=== PATIENT | female | born 2000 | race Two or more races ===

== ENCOUNTER 2024-01-23 08:19 | Inpatient (IN) | payer OTHER ==
[~2024-01-23] VITALS: Ht 163.8 cm; Wt 64.0 kg
[2024-01-23 09:24] LABS: Basophils # (auto) 0 10 ^3/uL (0-0.2); Basophils % (auto) 0.3 % (0.0-2.0); Eosinophils # (auto) 0 10 ^3/uL (0-0.8); Eosinophils % (auto) 0.2 % (0.0-7.0); Hematocrit 32.9 % (36.0-46.0); Hemoglobin 10.9 g/dL (12.2-16.2); Lymphocytes # (auto) 1.8 10 ^3/uL (0.4-5.4); Lymphocytes % (auto) 13.9 % (10.0-50.0); Mean Corpuscular Hemoglobin 28.4 pg (28.0-32.0); Mean Corpuscular Hgb Conc. 33.1 g/dL (32.0-36.0); Mean Corpuscular Volume 85.8 fL (80.0-100.0); Monocytes # (auto) 0.5 10 ^3/uL (0-1.3); Monocytes % (auto) 4.3 % (0.0-12.0); Neutrophils # (auto) 10.3 10 ^3/uL (1.6-8.6); Neutrophils % (auto) 81.3 % (37.0-80.0); Nucleated Red Blood Cells % 0.1 %; Red Blood Cells 3.83 10^6/uL (4.0-5.20); Red Cell Distribution Width 19.8 % (11.8-14.3); White Blood Cell 12.6 10^3/uL (4.4-10.8)
[2024-01-23 09:44] LABS: Alanine Aminotransferase 102 U/L (7-40); Albumin 3.8 g/dL (3.2-4.8); Alkaline Phosphatase 295 U/L (46-116); Anion Gap 8 (5-15); Aspartate Aminotransferase 33 U/L (13-40); BUN/Creatinine Ratio 21.7 (10.0-20.0); Bilirubin, Total 0.7 mg/dL (0.2-1.0); Blood Urea Nitrogen 10 mg/dL (9-23); Calcium 8.7 mg/dL (8.7-10.4); Carbon Dioxide 25 mmol/L (20-30); Chloride 106 mmol/L (98-107); Glucose 95 mg/dL (74-106); Potassium 3.2 mmol/L (3.5-5.1); Sodium 139 mmol/L (136-145); Total Protein 6.5 g/dL (5.7-8.2)
[2024-01-23] MEDS: IOHEXOL 300 MG/ML 100ML BOTTLE IJ ONE (09:55)
[2024-01-23] MEDS: CLINDAMYCIN 900MG IV 50 ML IV ONE (10:23)
[2024-01-23] MEDS ORDERED: AMPI500C9 PO (10:54)
[2024-01-23] MEDS: SODIUM CHLORIDE 0.9% 1,000 ML IV SCH (12:35)
[2024-01-23] MEDS: POTASSIUM EFFERVESENT TAB 25 MEQ PO ONE (12:35)
[2024-01-23] MEDS: HYDROcodone-ACET 5/325MG TAB PO PRN (12:45)
[2024-01-23] MEDS: CLINDAMYCIN 900MG IV 50 ML IV SCH (15:10)
[2024-01-23] MEDS: KETOROLAC TROMETH 30 MG/ML 1ML VIAL IV PRN (17:10)
[2024-01-23 21:21] VITALS: PULSE 63; RESP 19; O2SAT 99
[2024-01-23] MEDS: ASCORBIC ACID 500 MG TAB PO SCH (21:34)
[2024-01-23 23:14] VITALS: BP 99/63; PULSE 58; RESP 18; TEMP 98.3; O2SAT 95
[2024-01-23 23:15] VITALS: BP 99/63; PULSE 58; RESP 18; TEMP 98.3; O2SAT 95
[2024-01-24 05:00] VITALS: BP 97/62; PULSE 53; RESP 18; TEMP 98; O2SAT 94
[2024-01-24 06:01] LABS: Basophils # (auto) 0 10 ^3/uL (0-0.2); Basophils % (auto) 0.5 % (0.0-2.0); Eosinophils # (auto) 0.1 10 ^3/uL (0-0.8); Eosinophils % (auto) 1.5 % (0.0-7.0); Hematocrit 29.5 % (36.0-46.0); Lymphocytes # (auto) 2.1 10 ^3/uL (0.4-5.4); Lymphocytes % (auto) 28.7 % (10.0-50.0); Mean Corpuscular Hemoglobin 29.2 pg (28.0-32.0); Mean Corpuscular Hgb Conc. 33.7 g/dL (32.0-36.0); Mean Corpuscular Volume 86.5 fL (80.0-100.0); Monocytes # (auto) 0.6 10 ^3/uL (0-1.3); Monocytes % (auto) 7.6 % (0.0-12.0); Neutrophils # (auto) 4.5 10 ^3/uL (1.6-8.6); Neutrophils % (auto) 61.7 % (37.0-80.0); Red Blood Cells 3.41 10^6/uL (4.0-5.20); Red Cell Distribution Width 19.1 % (11.8-14.3); White Blood Cell 7.2 10^3/uL (4.4-10.8)
[2024-01-24 06:15] LABS: Alanine Aminotransferase 64 U/L (7-40); Albumin 3.1 g/dL (3.2-4.8); Alkaline Phosphatase 248 U/L (46-116); Anion Gap 7 (5-15); Aspartate Aminotransferase 27 U/L (13-40); BUN/Creatinine Ratio 22.2 (10.0-20.0); Bilirubin, Total 0.4 mg/dL (0.2-1.0); Blood Urea Nitrogen 10 mg/dL (9-23); Calcium 8.3 mg/dL (8.7-10.4); Carbon Dioxide 25 mmol/L (20-30); Chloride 109 mmol/L (98-107); Glucose 96 mg/dL (74-106); Potassium 3.7 mmol/L (3.5-5.1); Sodium 141 mmol/L (136-145)
[2024-01-24 06:16] LABS: Total Protein 5.3 g/dL (5.7-8.2)
[2024-01-24 09:00] VITALS: BP 103/70; PULSE 60; RESP 18; TEMP 98.2; O2SAT 97
[2024-01-24] MEDS: MULTIPLE VITAMIN TAB PO SCH (11:38)
[2024-01-24] MEDS: ZINC SULFATE 220mg CAP or TAB PO SCH (11:39)
[2024-01-24 12:38] VITALS: BP 99/61; PULSE 52; RESP 18; TEMP 98.1; O2SAT 96
[2024-01-24 16:36] LABS: INR 1.08 (0.9-1.15); Partial Thromboplastin Time 26.5 SEC (24.5-34.5); Prothrombin Time 11.4 sec (9.3-11.8)
[2024-01-24 17:00] VITALS: BP 103/64; PULSE 56; RESP 19; TEMP 97.9; O2SAT 97
[2024-01-24 21:00] VITALS: BP 103/71; PULSE 53; RESP 19; TEMP 99.2; O2SAT 98
[2024-01-25 01:00] VITALS: BP 96/57; PULSE 52; RESP 18; TEMP 98.8; O2SAT 95
[2024-01-25 05:00] VITALS: BP 109/72; PULSE 55; RESP 18; O2SAT 97
[2024-01-25 05:59] LABS: Basophils # (auto) 0 10 ^3/uL (0-0.2); Basophils % (auto) 0.6 % (0.0-2.0); Eosinophils # (auto) 0.1 10 ^3/uL (0-0.8); Hematocrit 31.2 % (36.0-46.0); Hemoglobin 10.3 g/dL (12.2-16.2); Lymphocytes % (auto) 30.7 % (10.0-50.0); Mean Corpuscular Hemoglobin 28.6 pg (28.0-32.0); Mean Corpuscular Hgb Conc. 33.1 g/dL (32.0-36.0); Mean Corpuscular Volume 86.7 fL (80.0-100.0); Monocytes # (auto) 0.5 10 ^3/uL (0-1.3); Monocytes % (auto) 7.7 % (0.0-12.0); Neutrophils # (auto) 3.9 10 ^3/uL (1.6-8.6); Nucleated Red Blood Cells % 0.2 %; Red Cell Distribution Width 19.6 % (11.8-14.3); White Blood Cell 6.5 10^3/uL (4.4-10.8)
[2024-01-25 06:17] LABS: Alanine Aminotransferase 64 U/L (7-40); Albumin 3.2 g/dL (3.2-4.8); Alkaline Phosphatase 288 U/L (46-116); Anion Gap 7 (5-15); Aspartate Aminotransferase 40 U/L (13-40); Calcium 8.6 mg/dL (8.7-10.4); Carbon Dioxide 27 mmol/L (20-30); Chloride 107 mmol/L (98-107); Glucose 90 mg/dL (74-106); Potassium 3.5 mmol/L (3.5-5.1); Sodium 141 mmol/L (136-145)
[2024-01-25 06:18] LABS: Bilirubin, Total 0.4 mg/dL (0.2-1.0); Total Protein 5.8 g/dL (5.7-8.2)
[2024-01-25 06:21] LABS: BUN/Creatinine Ratio 9.6 (10.0-20.0); Blood Urea Nitrogen < 5 mg/dL (9-23)
[2024-01-25 08:55] VITALS: BP 114/60; PULSE 54; RESP 16; TEMP 97.9; O2SAT 96
[2024-01-25] MEDS: ceFAZolin 2 GM/D5W50ml 50 ML IV ONE (10:06)
[2024-01-25] MEDS ORDERED: fentaNYL CITRATE 100 MCG/2 ML VL ONE (11:56)
[2024-01-25] MEDS ORDERED: MIDAZOLAM HCL 2MG/2ML 2ml VIAL (1mg/ml) ONE (11:57)
[2024-01-25] MEDS ORDERED: ONDANSETRON HCL 4 MG/2 ML VIAL ONE (11:59)
[2024-01-25] MEDS ORDERED: LIDOCAINE 2% (LOCAL ANESTH.) PF 5ml SDV ONE (11:59)
[2024-01-25] MEDS ORDERED: PROPOFOL 10 MG/ML 20 ML IV ONE (11:59)
[2024-01-25] MEDS: ceFAZolin 1GM VL ONE (12:12)
[2024-01-25 12:36] VITALS: RESP 13; O2SAT 100
[2024-01-25 17:00] VITALS: BP 93/57; PULSE 58; RESP 16; TEMP 98.6; O2SAT 98
[2024-01-25 21:00] VITALS: BP 90/57; PULSE 61; RESP 20; TEMP 97.9; O2SAT 97
[2024-01-26] VITALS (7 sets, daily range): BP systolic 88–113; BP diastolic 48–65; PULSE 47–67; RESP 12–20; TEMP 97.4–98; O2SAT 94–100
[2024-01-26 05:07] LABS: Basophils # (auto) 0 10 ^3/uL (0-0.2); Basophils % (auto) 0.7 % (0.0-2.0); Eosinophils # (auto) 0.1 10 ^3/uL (0-0.8); Eosinophils % (auto) 1.3 % (0.0-7.0); Hematocrit 28.3 % (36.0-46.0); Hemoglobin 9.4 g/dL (12.2-16.2); Lymphocytes # (auto) 1.7 10 ^3/uL (0.4-5.4); Lymphocytes % (auto) 28.8 % (10.0-50.0); Mean Corpuscular Hemoglobin 28.9 pg (28.0-32.0); Mean Corpuscular Hgb Conc. 33.3 g/dL (32.0-36.0); Mean Corpuscular Volume 86.7 fL (80.0-100.0); Monocytes # (auto) 0.4 10 ^3/uL (0-1.3); Monocytes % (auto) 6.6 % (0.0-12.0); Neutrophils # (auto) 3.8 10 ^3/uL (1.6-8.6); Neutrophils % (auto) 62.6 % (37.0-80.0); Nucleated Red Blood Cells % 0.1 %; Red Blood Cells 3.26 10^6/uL (4.0-5.20); Red Cell Distribution Width 19.5 % (11.8-14.3); White Blood Cell 6.1 10^3/uL (4.4-10.8)
[2024-01-26 05:16] LABS: Alanine Aminotransferase 51 U/L (7-40); Albumin 2.9 g/dL (3.2-4.8); Alkaline Phosphatase 254 U/L (46-116); Anion Gap 8 (5-15); Aspartate Aminotransferase 35 U/L (13-40); BUN/Creatinine Ratio 10.3 (10.0-20.0); Blood Urea Nitrogen 6 mg/dL (9-23); Carbon Dioxide 28 mmol/L (20-30); Chloride 107 mmol/L (98-107); Glucose 102 mg/dL (74-106); Potassium 3.4 mmol/L (3.5-5.1); Sodium 143 mmol/L (136-145)
[2024-01-26 05:17] LABS: Bilirubin, Total 0.3 mg/dL (0.2-1.0); Total Protein 5.4 g/dL (5.7-8.2)
[2024-01-26] MEDS: SODIUM CHLORIDE 0.9% 1,700 ML IV ONE (08:45)
[2024-01-26] MEDS: POTASSIUM CHL 20 Meq TABLET PO ONE (09:17)
[2024-01-26] MEDS: ACETAMINOPHEN 325 MG TAB PO PRN (09:18)
[2024-01-26] MEDS ORDERED: VANCOMYCIN PER PHARMACY 0 MG IV SCH (13:30)
[2024-01-26] MEDS: VANCOMYCIN 1GM/200ML 200 ML IV ONE (15:25)
[2024-01-26 18:18] LABS: Amphetamine Screen, Urine Neg (NEGATIVE); Barbiturate Scree,Urine Neg (NEGATIVE); Benzodiazephine Screen, Urine Neg (NEGATIVE); Cannabinoid Screen, Urine Neg (NEGATIVE); Cocaine Screen, Urine Neg (NEGATIVE); Opiate Scree,Urine Neg (NEGATIVE); Phencyclidine Screen, Urine Neg (NEGATIVE)
[2024-01-26 18:48] LABS: Urine Bacteria FEW /hpf (None Seen); Urine Blood 3+ /uL (Negative); Urine Clarity Turbid (Clear); Urine Color Colorless (Yellow); Urine Protein, UAD Negative (Negative); Urine Specific Gravity 1.007 (1.001-1.035); Urine Urobilinogen Normal (Negative); Urine WBC 25 /hpf (0 - 5); Urine pH 6.5 (5.0-9.0)
[2024-01-27] MEDS: VANCOMYCIN 1GM/200ML 200 ML IV SCH (00:15)
[2024-01-27 01:00] VITALS: BP 92/56; PULSE 60; RESP 17; TEMP 97.6; O2SAT 97
[2024-01-27] MEDS ORDERED: VANCOMYCIN PER PHARMACY 0 MG IV SCH (01:00)
[2024-01-27 05:00] VITALS: BP 106/65; PULSE 87; RESP 15; TEMP 97.9; O2SAT 96
[2024-01-27 07:01] LABS: Basophils # (auto) 0 10 ^3/uL (0-0.2); Basophils % (auto) 0.4 % (0.0-2.0); Eosinophils # (auto) 0.1 10 ^3/uL (0-0.8); Eosinophils % (auto) 1.4 % (0.0-7.0); Hematocrit 30.3 % (36.0-46.0); Hemoglobin 9.9 g/dL (12.2-16.2); Lymphocytes # (auto) 1.9 10 ^3/uL (0.4-5.4); Lymphocytes % (auto) 31.1 % (10.0-50.0); Mean Corpuscular Hemoglobin 28.3 pg (28.0-32.0); Mean Corpuscular Hgb Conc. 32.8 g/dL (32.0-36.0); Mean Corpuscular Volume 86.3 fL (80.0-100.0); Monocytes # (auto) 0.3 10 ^3/uL (0-1.3); Monocytes % (auto) 5.3 % (0.0-12.0); Neutrophils # (auto) 3.7 10 ^3/uL (1.6-8.6); Neutrophils % (auto) 61.8 % (37.0-80.0); Nucleated Red Blood Cells % 0.1 %; Red Blood Cells 3.51 10^6/uL (4.0-5.20); Red Cell Distribution Width 19.9 % (11.8-14.3)
[2024-01-27 07:31] LABS: Chloride 108 mmol/L (98-107); Potassium 3.6 mmol/L (3.5-5.1); Sodium 141 mmol/L (136-145)
[2024-01-27 07:32] LABS: Anion Gap 6 (5-15); Carbon Dioxide 27 mmol/L (20-30)
[2024-01-27 07:33] LABS: Calcium 8.4 mg/dL (8.7-10.4)
[2024-01-27 07:37] LABS: Glucose 96 mg/dL (74-106)
[2024-01-27 07:43] LABS: BUN/Creatinine Ratio 10.4 (10.0-20.0); Blood Urea Nitrogen < 5 mg/dL (9-23)
[2024-01-27 09:00] VITALS: BP 101/61; PULSE 55; RESP 20; TEMP 98; O2SAT 97
[2024-01-27] MEDS: cefTRIAXone 1GM/50ML D5W 50 ML IV SCH (09:28)
[2024-01-27 13:00] VITALS: BP 106/64; PULSE 68; RESP 20; TEMP 98.1; O2SAT 96
[2024-01-27 17:00] VITALS: BP 96/62; PULSE 69; RESP 20; TEMP 98.2; O2SAT 95
[2024-01-27 21:00] VITALS: BP 100/67; PULSE 63; RESP 16; TEMP 98; O2SAT 96
[2024-01-28 01:00] VITALS: BP 96/58; PULSE 71; RESP 15; TEMP 98.1; O2SAT 97
[2024-01-28] MEDS: VANCOMYCIN 1GM/200ML 200 ML IV SCH (02:41)
[2024-01-28 05:00] VITALS: BP 99/62; PULSE 69; RESP 15; TEMP 98; O2SAT 97
[2024-01-28 07:19] LABS: Basophils # (auto) 0.1 10 ^3/uL (0-0.2); Basophils % (auto) 0.8 % (0.0-2.0); Eosinophils # (auto) 0.1 10 ^3/uL (0-0.8); Hematocrit 33.4 % (36.0-46.0); Hemoglobin 11.3 g/dL (12.2-16.2); Lymphocytes # (auto) 2.3 10 ^3/uL (0.4-5.4); Mean Corpuscular Hgb Conc. 33.8 g/dL (32.0-36.0); Monocytes # (auto) 0.3 10 ^3/uL (0-1.3); Neutrophils # (auto) 3.9 10 ^3/uL (1.6-8.6)
[2024-01-28 07:26] LABS: Lymphocytes % (auto) 34.2 % (10.0-50.0); Mean Corpuscular Hemoglobin 29.3 pg (28.0-32.0); Mean Corpuscular Volume 86.6 fL (80.0-100.0); Red Blood Cells 3.85 10^6/uL (4.0-5.20); White Blood Cell 6.8 10^3/uL (4.4-10.8)
[2024-01-28 07:33] LABS: Anion Gap 6 (5-15); Calcium 9.3 mg/dL (8.7-10.4); Carbon Dioxide 29 mmol/L (20-30); Chloride 104 mmol/L (98-107); Potassium 3.8 mmol/L (3.5-5.1); Sodium 139 mmol/L (136-145)
[2024-01-28 07:39] LABS: BUN/Creatinine Ratio 10.5 (10.0-20.0); Blood Urea Nitrogen 6 mg/dL (9-23); Glucose 87 mg/dL (74-106)
[2024-01-28 07:41] LABS: Red Cell Distribution Width 20.1 % (11.8-14.3)
[2024-01-28 08:35] VITALS: BP 99/65; PULSE 57; RESP 18; TEMP 98.1; O2SAT 96
[2024-01-28 12:31] VITALS: BP 97/61; PULSE 71; RESP 18; TEMP 36.7; O2SAT 97
[2024-01-28 12:52] VITALS: BP 97/61; PULSE 71; RESP 18; TEMP 98.2; O2SAT 97
[2024-01-28] MEDS ORDERED: ZINC30CA PO (13:50)
[2024-01-28] MEDS ORDERED: MULT1TAB61 PO (13:50)
[2024-01-28] MEDS ORDERED: BACDST PO (13:50)
== END 2024-01-28 15:10 | disposition home or self-care (01) | DRG 385 ==
LOC: ER 08:19 → OVERFLOW 10:54 → WEST WING 22:43
PROVIDERS: ADMIT Internal Medicine; ATTEND Internal Medicine
PROC: 0H9U0ZZ Drainage of Left Breast, Open Approach (ICD-10-PCS; principal; 2024-01-25 11:53)
DX: N61.1 Abscess of the breast and nipple (principal); D72.829 Elevated white blood cell count, unspecified; E87.6 Hypokalemia; R74.01 Elevation of levels of liver transaminase levels; Z79.899 Other long term (current) drug therapy
CPT/HCPCS: 36415; 71260; 76642; 80048; 80053; 80307; 81001; 83605; 84702; 85025; 85610; 85730; 86850; 86900; 86901; 87040; 87070; 87075; 87077; 87186; 87205; 96365; G0378; J0690; J1885; J2001; J2250; J2405; J2704; J3490